=== PATIENT | female | born 2000 | race Caucasian/White ===

== ENCOUNTER 2019-07-02 22:25 | Emergency (ER) | payer OTHER ==
[~2019-07-02] VITALS: Ht 154.9 cm; Wt 69.4 kg
[2019-07-02 22:33] VITALS: BP 112/64; Ht 154.9 cm; Wt 69.4 kg
== END 2019-07-03 01:51 | disposition home or self-care (01) ==
LOC: ED 22:25
DX: S50.811A Abrasion of right forearm, initial encounter (principal); M25.531 Pain in right wrist; R22.31 Localized swelling, mass and lump, right upper limb; X58.XXXA Exposure to other specified factors, initial encounter; Y93.89 Activity, other specified; Y92.89 Other specified places as the place of occurrence of the external cause; Y99.8 Other external cause status